=== PATIENT | male | born 1965 | race Caucasian/White ===

== ENCOUNTER 2022-05-15 17:23 | Emergency (ER) | payer BC ==
[~2022-05-15] VITALS: Ht 182.9 cm; Wt 81.8 kg
[2022-05-15 17:32] VITALS: BP 122/79; TEMP 98.9
[2022-05-15] MEDS ORDERED: PEN-VEE K500 MG PO (18:00)
[2022-05-15 18:13] VITALS: PULSE 74
== END 2022-05-15 18:13 | disposition home or self-care (01) ==
LOC: COL.ER 17:23
DX: J02.9 Acute pharyngitis, unspecified (principal); F17.210 Nicotine dependence, cigarettes, uncomplicated; Z28.310 Unvaccinated for COVID-19
CPT/HCPCS: J0696; J1100